=== PATIENT | female | born 1995 ===

== ENCOUNTER 2025-05-10 22:06 | Emergency (ER) | payer OTHER, SELFPAY ==
[2025-05-10 22:13] VITALS: BP 145/86; PULSE 69; RESP 18; TEMP 36.4; O2SAT 99; BMI 31.1
[2025-05-10 22:44] LABS: IDNOW Serial# 6674DD1D; Strep A Nucleic Acid Negative (Negative)
[2025-05-10 23:05] LABS: Resp Syncy Virus RNA Qual PCR NEGATIVE (Negative); SARS COV2 PCR INHOUSE NEGATIVE (Negative)
[2025-05-10 23:33] VITALS: BP 137/85; PULSE 62; RESP 18; TEMP 36.7; O2SAT 99
--- NOTE | 2025-05-10 23:34 | ED.GENADULT ---
HPI - General Adult General Chief complaint: General Medical Stated complaint: Blood pressure, ear pain, sore throat Time Seen by Provider: 05/10/25 22:59 History of Present Illness HPI narrative: Patient is a 29-year-old female presents today with having earache. Sore throat. Patient is feels generalized malaise. Checked her blood pressure. The blood pressure was 170/114. Elected to come to the ED. patient's son had viral illness not weak. Patient denies any coughing congestion upper respiratory symptoms feels that she has an earache. Feels that she has sore throat. There is no change in her voice. There is no difficulty breathing. There is no shortness of breath. Related Data Allergies Allergy/AdvReac Type Severity Reaction Status Date / Time No Known Allergies (No Known Allergy Verified 05/10/25 22:19 Allergies*) Review of Systems Review of Systems: Positive sore throat Yes all other systems are reviewed and are negative PMFSH Past Medical History Attestation statement: The following information was validated with the patient. Social History Social History Advance Directives: No Advance Directives Information Provided: Yes Physical Exam ED Vital Signs: Vital Signs - 24 hr 05/10/25 22:13 Temperature 97.5 F Pulse Rate 69 Respiratory Rate 18 Blood Pressure 145/86 H Pulse Oximetry 99 Oxygen Delivery Method Room Air BMI result Body Mass Index 31.1 Appearance: Alert. Oriented X3. No acute distress. Eyes: Pupils equal, round and reactive to light. ENT: Pharynx normal. TMs are intact bilaterally there is good light reflex there is no erythema noted. Neck: Normal inspection. Neck supple. No lymph nodes noted. No crepitus CVS: Normal heart rate and rhythm. Pulses normal. Normal S1 and S2 Respiratory: No respiratory distress. Breath sounds normal. No Wheezing. No rales Abdomen: Soft and nontender. No rigidity. No distention. good BS x4 Skin: Skin warm and dry. Normal skin color. Normal skin turgor. Extremities: No lower extremity edema. Neurovascular intact to all extremities. No Lacerations. No Rash Neuro: Oriented X 3. No motor deficit. No sensory deficit. Moving all extermities. No slurred speech Medical Decision Making Medical Decision Making MDM Narrative: Patient well-appearing no acute distress. Blood pressure is actually 130s over 80s. COVID flu RSV were all negative. Patient's strep was negative. In no distress. Blood pressure is normal. No evidence for hyper tension in no distress Differential Diagnosis Differential Diagnoses: The differential diagnosis associated with the presentation includes Admission/Observation Consideration of admission/observation: Escalation of care including admission/observation considered No need for admission workup negative Lab Data MDM Lab Attestation statement: I reviewed the patient's lab results. Labs: Lab Results 05/10/25 Range/Units 22:24 Influenza Type A (PCR) NEGATIVE (Negative) Influenza Type B (PCR) NEGATIVE (Negative) RSV RNA Qual (PCR) NEGATIVE (Negative) SARS-CoV-2 RNA (RT-PCR) NEGATIVE (Negative) S. pyogenes GrpA JONES Negative (Negative) Discharge Plan Discharge Clinical Impression: Earache, Acute pharyngitis Patient Disposition: Home, Self-Care Instructions: Pharyngitis (ED), Earache (ED) Referrals: [facility] [Provider Group] - 1 week Print Language: Georgian
[2025-05-11 00:07] VITALS: BP 137/85; PULSE 62; RESP 18; TEMP 36.7; O2SAT 99
--- NOTE | 2025-05-11 00:09 | PC.NURSE ---
attempted to reviewed discharge papers, pt left before receiving document
== END 2025-05-11 00:09 | disposition home or self-care (01) ==
PROVIDERS: Emergency Provider Emergency Medicine Emergency Medical Services
DX: J02.9 Acute pharyngitis, unspecified (principal); H92.01 Otalgia, right ear; Z03.818 Encounter for observation for suspected exposure to other biological agents ruled out
CPT/HCPCS: 87637; 87651; 99283; 99284